=== PATIENT | male | born 1995 | race Two or more races ===

== ENCOUNTER 2024-01-19 13:52 | Emergency (ER) | payer OTHER ==
[2024-01-19 13:58] VITALS: TEMP 98.4; BMI 27.1
[2024-01-19] MEDS ORDERED: ACETAMINOPHEN INJECTION 100 ML ONE (14:49)
[2024-01-19] MEDS: SODIUM CHLORIDE 1,000 ML IV STA (15:48)
[2024-01-19] MEDS: ACETAMINOPHEN 1000 MG/100 ML BAG IVPB ONE (15:49)
[2024-01-19] MEDS ORDERED: KETOROLAC TROMETHAMINE 30 MG/1 ML VIAL ONE (17:39)
[2024-01-19] MEDS: KETOROLAC TROMETHAMINE 30 MG/1 ML VIAL IVPUSH ONE (17:48)
[2024-01-19 18:43] VITALS: BP 124/84; PULSE 77; RESP 14
== END 2024-01-19 18:43 | disposition home or self-care (01) ==
LOC: JER 13:52
PROC: 3E033NZ Introduction of Analgesics, Hypnotics, Sedatives into Peripheral Vein, Percutaneous Approach (ICD-10-PCS; principal; 2024-01-19)
PROC: 3E0333Z Introduction of Anti-inflammatory into Peripheral Vein, Percutaneous Approach (ICD-10-PCS; 2024-01-19)
PROC: 3E0337Z Introduction of Electrolytic and Water Balance Substance into Peripheral Vein, Percutaneous Approach (ICD-10-PCS; 2024-01-19)
DX: R07.89 Other chest pain (principal); Z20.822 Contact with and (suspected) exposure to COVID-19
CPT/HCPCS: 0241U-QW; 36415; 71046-TC-FY; 84484; 93005; 93010; 96361; 96374; 96375; 99285-25; J0131